=== PATIENT | female | born 1990 | race Hispanic/Latino ===

== ENCOUNTER 2018-10-26 07:33 | Inpatient (IN) | payer OTHER ==
[2018-10-23 17:26] LABS: BASOPHILS % 0.5 % (0.0-1.0); EOSINOPHILS # (AUTO) 0.2 (0.0-0.4); EOSINOPHILS % 1.7 % (0.0-6.0); HEMATOCRIT 44.2 % (34.2-44.1); HEMOGLOBIN 14.3 g/dL (12.0-16.0); LYMPHOCYTES # (AUTO) 1.9 (1.0-3.2); LYMPHOCYTES % 21.1 % (18.0-39.1); MEAN CORPUSCULAR HEMOGLOBIN 27.5 pg (28-32); MEAN CORPUSCULAR HGB CONC 32.4 g/dL (31-35); MONOCYTES # (AUTO) 0.6 (0.2-0.8); MONOCYTES % 6.8 % (4.4-11.3); NEUTROPHILS # (AUTO) 6.1 (2.1-6.9); NEUTROPHILS % 69.4 % (38.7-80.0); PLATELET COUNT 308 x10e3/uL (140-360); RED CELL DISTRIBUTION WIDTH 13.1 % (11.7-14.4)
[2018-10-23 17:37] LABS: ANION GAP 15.3 mmol/L (8-16); BLOOD UREA NITROGEN 17 mg/dL (7-26); BUN/CREATININE RATIO 22 (6-25); CALCIUM 9.9 mg/dL (8.4-10.2); CARBON DIOXIDE 24 mmol/L (22-29); CHLORIDE 98 mmol/L (98-107); CREATININE, SERUM 0.77 mg/dL (0.57-1.11); EST GLOMERULAR FILTRATION RATE > 60 ML/MIN (60-); GLUCOSE 108 mg/dL (74-118); POTASSIUM 3.3 mmol/L (3.5-5.1); SODIUM 134 mmol/L (136-145)
[~2018-10-26] VITALS: Ht 165.1 cm; Wt 184.8 kg
[~2018-10-26 07:33] MED LIST: AMLODIPINE BESY10 MG PO; BUPIVACAINE 0.25% 30ML SDV INJ ONE; CARVEDILOL12.5 MG PO; HYDROCHLOROTHIA25 MG PO
[2018-10-26] MEDS ORDERED: CEFAZOLIN SOD 2 GM/D5W 50ML 50 ML IV ONE (07:43)
[2018-10-26] MEDS ORDERED: SCOPOLAMINE 1.5 MG PATCH ONE (07:48)
[2018-10-26] MEDS ORDERED: LIDOCAINE HCL (LTA) 4 ML SOLN ONE (07:48)
[2018-10-26] MEDS ORDERED: ACETAMINOPHEN 1000 MG/100 ML 100 ML IV ONE (07:48)
[2018-10-26] MEDS ORDERED: FENTANYL CITRATE/PF 100MCG/2 ML INJ ONE ×2 (12:53→17:41)
--- NOTE | 2018-10-26 14:03 | Operative Report ---
DATE OF PROCEDURE: October 26, 2018 PREOPERATIVE DIAGNOSES 1. Morbid obesity, body mass index 70, weight 425 pounds. 2. Hypertension. POSTOPERATIVE DIAGNOSES 1. Morbid obesity, body mass index 70, weight 425 pounds. 1. Hypertension. PREOPERATIVE INDICATIONS: Treat disease, prevent complications related to comorbid conditions of obesity. PROCEDURE PERFORMED: Laparoscopic Lily-en-Y gastric bypass (150 cm antegastric antecholic lily limb). ANESTHESIA: General. MENDER HAND: Jose Luis Patiño Surgical Beck Operator (needed due to complexity of case). FLUIDS: 1 liter of crystalloid. ESTIMATED BLOOD LOSS: 30 mL. DRAINS: None. COMPLICATIONS: None. SPECIMENS: None. GRAFTS: None. FINDINGS 1. Abundant intra-abdominal and subcutaneous adiposity. 2. Normal upper GI anatomy. 3. Negative intraoperative EGD leak test. PROCEDURAL DETAILS: The patient was brought to the operating room and was intubated under general endotracheal anesthesia. She was positioned supine with both arms abducted and all pressure points appropriately padded. A Castorena catheter was placed to decompress the bladder. An orogastric tube was placed to decompress the stomach. We then did a preprocedural pause, identifying the patient and the use of perioperative antibiotics, the intended procedure and the staff surgeon. A primary 5-mm left subcostal incision was made, and a Veress needle was inserted to insufflate the abdomen to a pressure of 15 mmHg pressure. A 0-degree 5-mm Optiview trocar was placed under direct visualization. No injuries were noted. Four additional trocars were placed in the standard positions. The patient was then placed in the steep reverse Trendelenburg position. A liver retractor was used to expose the stomach and the hiatus. I began my dissection by incising the gastrohepatic ligament using the [place] LigaSure device. The pedicle of the left gastric vessels was identified, and the omentum up to the lesser curvature of the stomach distal to this was ligated using the [place] LigaSure device until the lesser curvature of the stomach was exposed. Once this was complete, I then had Anesthesia remove the orogastric tube after the stomach was decompressed. We began stapling the stomach to create our pouch. The first firing of the stapler was in a 90-degree fashion at the lesser curvature of the stomach just distal to the pedicle of the left gastric vessels. Of note, the descending branches of the left gastric vessels were ligated prior to the stapling of the stomach. Our first firing was a purple load of 60 mm Endo KATI Covidien staple load. I fired again at 90-degree angle. I then continued creating our pouch to make it about 30 mL in volume. The remnant of the staple line was hemostatic. The proximal staple line was oversewn with 2-0 Surgidac suture in an imbricating fashion. I then turned my attention to the small bowel. I identified the ligament of Treitz by elevating the mesocolon of the transverse colon. I then measured our biliopancreatic limb 50 cm distal to this and divided the bowel with a nails load Covidien 60 mm Endo KATI stapling device. The mesentery was ligated down to its base using the Harmonic scalpel. I then measured 150 cm distal to this to create our lily limb. The lily limb and the biliopancreatic limb were approximated together with 2-0 Surgidac suture. Enterotomies were made on either end, and a linear anastomosis end-to-side between the biliopancreatic limb and the lily limb was completed. The common enterotomy site was also stapled off using a nails load stapler. The staple line was hemostasis. I then put antiobstruction sutures at either end of the anastomosis to prevent tension on the anastomosis. Once that was completed, I then closed the mesenteric defect with 2-0 Surgidac suture in a continuous fashion. The anastomosis appeared patent with good blood supply and without undue tension. I then split the omentum to create a tunnel for our lily limb. This was done using the [place] LigaSure device. The lily limb was then brought up to the pouch, and a posterior layer with 2-0 Surgidac suture was done in an imbricating fashion. Next, enterotomies were made in the gastric pouch as well as the lily limb, and a purple load Covidien Endo KATI stapling device was used to create a linear anastomosis at 3 cm in length. The common enterotomy site was then oversewn with 2-0 Polysorb suture beginning at either end of the anastomosis. Prior to tying the suture line in the middle of the anastomosis, an adult size endoscope was passed through the anastomosis to be used as a bougie to prevent any undue stenosis on the anastomosis. Once this was complete, I then oversewed the suture line with 2-0 Surgidac suture in an imbricating fashion to oversew the suture line. Once that was complete, I then conducted an intraoperative EGD leak test by submerging the anastomosis under saline and insufflating the anastomosis with the endoscope. No leaks were identified intraluminally. The anastomosis appeared patent and without any intraluminal hemorrhaging. Prior to removing the endoscope, I desufflated the lily limb as well as the anastomosis and the pouch. I then closed Richardson's defect, which was the defect between the mesentery of the lily limb and the transverse mesocolon, with 2-0 Surgidac suture in a continuous fashion. This was to prevent any internal hernia from forming in the future. I then placed an omental patch over the anastomosis between the gastrojejunostomy with 2-0 Surgidac suture. The large port site was closed with 0 Vicryl suture using the Emmett-Effie technique. We verified hemostasis and removed the liver retractor. The abdomen was then desufflated, and the trocars were removed. The incision sites were closed with 4-0 Monocryl suture in a subcuticular fashion. Dermabond dressings were applied. We used a total of 30 mL of 0.25% bupivacaine in both the preperitoneal and incision sites. Type of wound is type 2, clean, contaminated. The patient tolerated the procedure well. Job#: [id number] CATHERINE
[2018-10-26 15:50] VITALS: BP 105/63
[2018-10-26] MEDS ORDERED: MORPHINE SULFATE 2 MG/ML SYR IV PRN (16:30)
[2018-10-26] MEDS ORDERED: SODIUM CHLORIDE 0.9% 1000ML 1,000 ML IV SCH (16:30)
[2018-10-26] MEDS ORDERED: ONDANSETRON HCL INJ 2 MG/ML VIAL IV PRN (16:30)
--- NOTE | 2018-10-26 16:43 | Consultation ---
DATE OF CONSULTATION: NO DICTATION. 0 seconds. Job#: [id number] GH
[2018-10-26] MEDS ORDERED: MORPHINE SULFATE INJ 4 MG/ML INJ IV PRN (16:45)
[2018-10-26] MEDS ORDERED: CARVEDILOL 12.5 MG TAB PO SCH (17:00)
[2018-10-26] MEDS: CARVEDILOL 12.5 MG TAB PO SCH (17:00)
--- NOTE | 2018-10-26 17:00 | NUR ---
PT VOIDED AFTER IRAHETA REMOVAL
--- NOTE | 2018-10-26 17:03 | Consultation ---
DATE OF CONSULTATION: October 26, 2018 REASON FOR CONSULTATION: Medical management. HISTORY OF PRESENT ILLNESS: This is a 28-year-old woman who has history of hypertension and extreme obesity. The patient underwent elective laparoscopic Sonu-en-Y gastric bypass. The patient tolerated this procedure quite well. The patient has a calculated body mass index of 67. The patient voices no complaints at this time. REVIEW OF SYSTEMS: GENERAL: The patient has lost 15 pounds over the last 2 weeks. No fever or chills. HEENT: No headaches, no vision changes. CARDIOVASCULAR/RESPIRATORY: No chest pain, no shortness of breath. GI: Denies any nausea or vomiting. : Castorena catheter has been removed. NEUROMUSCULAR: Denies any limb weakness or numbness. PAST MEDICAL HISTORY: 1. Hypertension. 2. Extreme obesity. HOME MEDICATIONS: 1. Carvedilol 12.5 mg b.i.d. 2. Amlodipine 10 mg daily. 3. Hydrochlorothiazide 25 mg daily. FAMILY HISTORY: Noncontributory. SOCIAL HISTORY: The patient has one child. Denies any history of tobacco or alcohol use. 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 ALLERGIES: NO KNOWN DRUG ALLERGIES. PAST SURGICAL HISTORY: 1. section in 2012. 2. Tonsillectomy in 2001. PHYSICAL EXAMINATION GENERAL: She is ambulating about the room. VITAL SIGNS: 150/80, pulse 82, respiratory rate 18, oxygen saturation 99% on room air, temperature is 97.0. Height 5 feet 5 inches. Weight is 407 pounds. BMI 67. INTEGUMENT: Skin is warm and dry. No pallor, jaundice, diaphoresis. HEENT: Anicteric sclerae with moist mucous membranes. NECK: Supple. CARDIOVASCULAR: Regular rate and rhythm. LUNGS: No rales, no rhonchi or wheezing. ABDOMEN: Obese. No bowel sounds are appreciated at this time. EXTREMITIES: No edema or deformity. NEUROLOGIC: Intact. IMPRESSION 1. Status post laparoscopic Sonu-en-Y gastric bypass. 2. Extreme obesity. Calculated BMI is 67 complicating her hypertension. 3. Hypertensive heart disease. PLAN: 1. Restart oral home blood pressure medications with small sips of water. 2. Will continue intravenous fluids overnight. 3. Mobilize physical therapy. 4. Pain control. 5. Will follow electrolytes, renal function. 6. Will follow hemoglobin and hematocrit 7. Will likely start Enoxaparin tomorrow for deep venous thrombosis prophylaxis. I spent 40 minutes in the care of this patient. I would like to thank Dr. Foss for this generous consult. Job#: [id number] GH
[2018-10-26 17:28] VITALS: BP 105/63
[2018-10-26] MEDS ORDERED: MIDAZOLAM HCL 2 MG/2 ML VIAL ONE (17:41)
[2018-10-26] MEDS: MORPHINE SULFATE INJ 4 MG/ML INJ IV PRN ×2 (17:56→20:42)
[2018-10-26] MEDS: LACTATED RINGER'S 1,000 ML IV SCH (17:56)
--- NOTE | 2018-10-26 18:24 | NUR ---
PT AMBULATING WITH UNCRATER AT THIS TIME
[2018-10-26] MEDS ORDERED: LIDOCAINE HCL 2% LOCAL INJ 5 ML SDV VIAL INJ ONE (18:55)
[2018-10-26] MEDS ORDERED: PROPOFOL IV EMULSION 10 MG/ML 20 ML VIAL ONE (18:55)
[2018-10-26] MEDS ORDERED: ONDANSETRON HCL INJ 2 MG/ML VIAL ONE (18:55)
[2018-10-26] MEDS ORDERED: NEOSTIGMINE 5 MG/5ML SYR ONE (18:55)
[2018-10-26] MEDS ORDERED: ACETAMINOPHEN 1000 MG/100 ML IV ONE (18:55)
[2018-10-26] MEDS ORDERED: GLYCOPYRROLATE INJ 1MG/ 5 ML SYR ONE (18:55)
[2018-10-26] MEDS ORDERED: SEVOFLURANE INHAL SOLN 250 ML PEN BTL ONE (18:55)
[2018-10-26] MEDS ORDERED: ROCURONIUM BROMIDE 10 MG/ML 5ML VIAL ONE (18:55)
[2018-10-26] MEDS ORDERED: DEXAMETHASONE SOD PHOS INJ 4 MG/ML VIAL ONE (18:55)
--- NOTE | 2018-10-26 19:30 | NUR ---
Pt ambulated to the restroom. Slight pain with movement, denies nausea. Will continue to monitor.
[2018-10-26 20:00] VITALS: BP 134/63
[2018-10-26 20:05] VITALS: BP 134/63
[2018-10-26] MEDS: ENOXAPARIN SOD INJ 40 MG/0.4 ML SYR SC SCH (20:38)
--- NOTE | 2018-10-26 21:33 | NUR ---
Pt ambulating at this time to the restroom. Denies any distress/discomfort at this time. IV fluids to right hand infusing @ 100cc/hr. Will continue to monitor.
[2018-10-27] VITALS: BP 107/59
--- NOTE | 2018-10-27 00:02 | NUR ---
Pt ambulating down the hallway. Verbalizes some pain to abdomen. Will continue to monitor.
--- NOTE | 2018-10-27 00:17 | NUR ---
Medicated pt with pain medicine per emar.
[2018-10-27] MEDS: MORPHINE SULFATE INJ 4 MG/ML INJ IV PRN ×4 (00:19→12:55)
[2018-10-27] MEDS: LACTATED RINGER'S 1,000 ML IV SCH (00:20)
[2018-10-27 04:00] VITALS: BP 111/65
[2018-10-27 05:47] LABS: BASOPHILS % 0.1 % (0.0-1.0); HEMATOCRIT 39.7 % (34.2-44.1); HEMOGLOBIN 13.2 g/dL (12.0-16.0); LYMPHOCYTES # (AUTO) 1.2 (1.0-3.2); MEAN CORPUSCULAR HEMOGLOBIN 27.8 pg (28-32); MEAN CORPUSCULAR HGB CONC 33.2 g/dL (31-35); MEAN CORPUSCULAR VOLUME 83.8 fL (81-99); MONOCYTES # (AUTO) 0.6 (0.2-0.8); MONOCYTES % 5.9 % (4.4-11.3); NEUTROPHILS # (AUTO) 8.8 (2.1-6.9); NEUTROPHILS % 82.6 % (38.7-80.0); PLATELET COUNT 290 x10e3/uL (140-360); RED BLOOD COUNT 4.74 x10e6/uL (3.6-5.1); RED CELL DISTRIBUTION WIDTH 13.2 % (11.7-14.4)
[2018-10-27 06:23] LABS: ALANINE AMINOTRANSFERASE 22 IU/L (0-55); ALBUMIN 3.3 g/dL (3.5-5.0); ALBUMIN/GLOBULIN RATIO 0.9 (0.8-2.0); ALKALINE PHOSPHATASE 56 IU/L (40-150); ANION GAP 16.2 mmol/L (8-16); BLOOD UREA NITROGEN 9 mg/dL (7-26); BUN/CREATININE RATIO 13 (6-25); CALCIUM 8.9 mg/dL (8.4-10.2); CARBON DIOXIDE 22 mmol/L (22-29); CHLORIDE 104 mmol/L (98-107); CREATININE, SERUM 0.67 mg/dL (0.57-1.11); EST GLOMERULAR FILTRATION RATE > 60 ML/MIN (60-); GLUCOSE 106 mg/dL (74-118); POTASSIUM 3.2 mmol/L (3.5-5.1); SODIUM 139 mmol/L (136-145)
[2018-10-27 06:42] LABS: MAGNESIUM 2.1 MG/DL (1.3-2.1); PHOSPHORUS 3.4 MG/DL (2.3-4.7)
[2018-10-27 07:52] VITALS: BP 124/64
--- NOTE | 2018-10-27 08:22 | NUR ---
Patient sitting up in recliner. Tolerated with clear liquids, no nausea, no distress noted, trena light in reach
[2018-10-27] MEDS: CARVEDILOL 12.5 MG TAB PO SCH (08:46)
[2018-10-27] MEDS: ENOXAPARIN SOD INJ 40 MG/0.4 ML SYR SC SCH (08:46)
[2018-10-27] MEDS ORDERED: AMLODIPINE BESYLATE 10 MG TAB PO SCH (09:00)
[2018-10-27] MEDS ORDERED: AMLODIPINE BESYLATE 5 MG TAB PO SCH (09:00)
[2018-10-27] MEDS ORDERED: HYDROCHLOROTHIAZIDE 25 MG TAB PO SCH (09:00)
[2018-10-27] MEDS ORDERED: POTASSIUM CHLORIDE 10MEQ EA PO NR (10:00)
--- NOTE | 2018-10-27 10:04 | NUR ---
Progress note S: No major complaints O: AF, VSS, Labs reviewed Gen- no acute distress Abd- soft, incisions c/d/i A/P: POD 1, s/p Lap RYGB -Clears, ambulate, dc home -f/u in 2 weeks in clinic
--- NOTE | 2018-10-27 10:49 | NUR ---
Nutrition Screen Note RD Recommendation for Physician: -Advance diet as tolerated -Rec follow-up as outpatient for further diet education and monitoring Plan of Care: RD following, monitoring for tolerance and adequacy, diet education Nutrition reason for involvement: MD Consult bariatric diet progression Primary Diagnose(s): s/p elective laparoscopic Sonu-en-Y gastric bypass PMH: HTN, extreme obesity Ht: 65in Wt: 407.44lb BMI: 67.8kg/m2 IBW: 125lb RD Assessment: (10/27/2018) Chart reviewed. Labs and meds reviewed. 28 yo F, who underwent elective laparoscopic Osnu-en-Y gastric bypass on 10/26. POD 1. Visited pt in the room. Pt reports tolerating diet without any GI complains. Bariatric diet education was provided. Will continue to monitor and follow. Current Diet: clear liquid Malnutrition Evaluation (10/27/2018) The patient does not meet criteria for a specified degree of malnutrition at this time. Will re-evaluate at follow-up as appropriate. Diet Education Needs Assessment: Diet education indicated, pt is agreeable with plan. Learner(s): pt Barriers: none Cultural/Language Modifications: none Readiness: ready Method: handouts, explanation Topics: bariatric diet progression Understanding/Compliance: Pt understood. All questions have been answered. Nutrition Care Level: low Signed: Ayaka Mohan, MS, RD, LD
[2018-10-27 10:51] VITALS: BP 124/64
--- NOTE | 2018-10-27 11:25 | NUR ---
Dr Cavanaugh had rounds, stated patient can be discharged , he explained to patient about dietary management and f/up appointments, Call placed to Dr Trujillo and recvd discharge order, he said patient can continue all home meds
[2018-10-27] MEDS ORDERED: TYLENOL WITH C1 EACH PO (12:53)
[2018-10-27] MEDS ORDERED: ULTRAM50 MG PO (12:54)
--- NOTE | 2018-10-27 13:20 | NUR ---
patient discharged home, Alert with no distress, she aware about diet, and follow up appointments, family at bed side to give ride, IV canula removed with tip intact, no SS of infiltration noted, abdominal trochar site site is intact, no bleeding or drainage noted, transported via wheelchair to [facility]
[2018-10-27] MEDS ORDERED: HYDROCODONE/APAP 7.5MG-325MG 1 EA TAB PO PRN (16:30)
--- NOTE | 2018-10-28 07:57 | NUR ---
Dictated DC summary: [id number]
--- NOTE | 2018-10-28 08:18 | Discharge Summary ---
ADMIT DIAGNOSES 1. Extreme obesity. Calculated body mass index is 68. 2. Hypertensive heart disease. DISCHARGE DIAGNOSES 1. Status post laparoscopic Sonu-en-Y gastric bypass. 2. Extreme obesity. Calculated body mass index is 68 complicating her hypertension. HOSPITAL COURSE: This is a 28-year-old woman who has a known history of hypertension and extreme obesity. Her extreme obesity is complicating her underlying hypertensive heart disease. During this hospitalization, the patient underwent successful laparoscopic Sonu-en-Y gastric bypass. The surgery was performed by her bariatric surgeon, namely Dr. Foss. The patient's brief hospitalization was unremarkable. Her condition on discharge was stable. DISCHARGE MEDICATIONS 1. Carvedilol 6.25 mg b.i.d. 2. Amlodipine 5 mg daily. 3. Hydrochlorothiazide 25 mg daily. 4. Tylenol No. 3 one tablet every 6 hours p.r.n. pain. 5. Tramadol 50 mg every 4 hours p.r.n. mild pain. FOLLOWUP INSTRUCTIONS: The patient was instructed to follow up with Dr. Foss within 2 weeks and with her primary care physician within 2-3 weeks. GLORIA CORNELL MD Job#: [id number] RI cc:MUSA FOSS MD
== END 2018-10-27 13:20 | disposition home or self-care (01) | DRG 621 ==
LOC: OR 07:33 → PACU V 16:01 → MED/SURG 16:10
PROVIDERS: ADMIT Surgery; ATTEND Surgery
PROC: 0D164ZA Bypass Stomach to Jejunum, Percutaneous Endoscopic Approach (ICD-10-PCS; principal; 2018-10-26 08:30)
DX: E66.01 Morbid (severe) obesity due to excess calories (principal); Z68.45 Body mass index [BMI] 70 or greater, adult; I11.9 Hypertensive heart disease without heart failure
CPT/HCPCS: 36415; 80048; 80053; 83735; 84100; 84702; 85025; 86850; 86900; 94660; J0690; J1100; J1650; J2001; J2250; J2270; J2405; J7030; J7120